=== PATIENT | female | born 1970 | race Caucasian/White ===

== ENCOUNTER → 2016-12-13 | Outpatient (CLI) | payer OTHER ==
[~2016-12-13] MED LIST: BACTRIM DS 8001 TAB PO; DICLOFENAC 50MG50 MG PO; ESCITALOPRAM20 MG PO; MELOXICAM15 MG PO; NICOTINE PATCH;21 MG TD; NOMEDS XX; PERCOCET 5/3251 EACH PO; ROBAXIN500 M1 PO; SULFAMETHOXAZOLE-TMP PO; TRAMADOL50 M1 PO; TRAZODONE HCL50 MG PO
--- NOTE | 2016-12-14 10:16 | RADIOLOGY REPORT PS360 ---
MRI-C-SPINE W/O, MRI-3D RENDERING/MYELOGRAM HISTORY: NECK PAIN right arm pain and numbness. Tingling since August. Weakness right arm Patient Age: 46 years: Female Ordering Physician: HONG ANNA APRN TECHNIQUE: Sagittal STIR, T1, T2, axial T1 and T2. On 1.5T Siemens wide bore MRI. 3-D MR myelogram image set obtained & performed on MRI workstation. Additional sagittal thin section T2 weighted dataset obtained from this latter acquisition as well (---76 CPT) COMPARISON :plain film cervical spine 09/27/2015 FINDINGS The craniocervical junction is intact. . The vertebral bodies are intact no lesion or compression fracture evident. C2/3 disc intact C3/4. Disc intact with only scant disc prominence/bulge to the right noted on axial images but unimpressive on sagittal view. C4/5. Disc space narrowing which seems to have progressed since plain films 09/26/2016 diffuse [id number] Broad-based soft disc disc protrusion. Slight undulating contour with a small area of protrusion at inferior right foramen as well as more evident broad-based protrusion midline & to the left. This does mildly efface the anterior aspect of the cervical cord, which seems to be most evident midline. It narrows the spinal canal to 7.5 mm AP at midline yielding mild spinal stenosis. In either case most significant findings are at this level. Bilateral foraminal encroachment slightly more evident to the left but also seen near entry right foramen.. C5-6. Disc well-maintained with only scant central bulge. Neural foramen widely patent C6/7 disc intact unremarkable. C7/T1 disc intact T1/T2 disc intact. As does T2/3. Cervical cord normal caliber and signal 3-D MR myelogram image set nicely demonstrates the narrowing of the spinal canal at C4/5 due to the mild/moderate disc protrusion IMPRESSION: C4/5. Mild to moderate cervical disc herniation. Diffuse Broad-based disc protrusion at C4/5 does mildly efface the anterior aspect the cervical cord & and yieldsmild spinal stenosis at this level... Neurosurgical consult warranted (On MR this slight undulating disc protrusion most evident midline & to left, with left foraminal encroachment slightly more evident on left. However on close inspection there may also also be also a small disc protrusion right paracentral at this level, best seen on sagittal images 8,) Only minor observations other levels.
== END ==
LOC: RAD 12:54
DX: M54.2 Cervicalgia (principal)